=== PATIENT | male | born 2000 | race Caucasian/White ===

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

== ENCOUNTER → 2019-09-30 | Outpatient (CLI) | payer BC ==
[2019-09-30 17:49] LABS: HEMATOCRIT 47.7 % (36.0-47.0); HEMOGLOBIN 16.6 g/dL (12.5-16.1); MEAN PLATELET VOLUME 10.2 fl (7.4-10.4); RED BLOOD COUNT 5.44 M/mm3 (4.20-5.60); RED CELL DISTRIBUTION WIDTH 12.4 % (11.5-14.5); WHITE BLOOD COUNT 7.8 K/mm3 (4.8-10.8)
[2019-09-30 17:58] LABS: PH-URINE 5.5 (5.0 - 8.0); URINE APPEARANCE CLEAR; URINE BILIRUBIN NEGATIVE (NEGATIVE); URINE BLOOD NEGATIVE (NEGATIVE); URINE COLOR YELLOW; URINE GLUCOSE NEGATIVE (NEGATIVE); URINE KETONE NEGATIVE (NEGATIVE); URINE LEUKOCYTE ESTERASE NEGATIVE (NEGATIVE); URINE NITRATE NEGATIVE (NEGATIVE); URINE PROTEIN(semi-quant) TRACE mg/dL (NEGATIVE); URINE UROBILINOGEN NORMAL (NORMAL); URINE WBC 0-1 /hpf (0-3)
[2019-09-30 18:00] LABS: ALBUMIN 4.3 g/dL (3.5-5.0); POTASSIUM 3.8 mmol/L (3.5-5.1)
[2019-09-30 18:01] LABS: CALCIUM 9.3 mg/dL (8.3-10.5)
[2019-09-30 18:04] LABS: TOTAL BILIRUBIN 0.4 mg/dL (0.2-1.2)
== END ==
LOC: AMSURD 17:36
PROVIDERS: Family Medicine
DX: R55 Syncope and collapse (principal)

== ENCOUNTER → 2019-10-07 | Outpatient (CLI) | payer BC ==
[2019-10-07 07:34] LABS: EOS # 0.2 (0.04-0.40); EOS % 2.8 % (0.0-4.0); HEMATOCRIT 48.2 % (36.0-47.0); HEMOGLOBIN 16.9 g/dL (12.5-16.1); LYMPH# 2.8 (1.50-4.00); MEAN CELL VOLUME 88 fl (78-95); MEAN CORPUSCULAR HEMOGLOBIN 31 pg (26-32); MEAN CORPUSCULAR HGB CONC 35 g/dL (33-37); MEAN PLATELET VOLUME 10.5 fl (7.4-10.4); MONO # 0.7 (0.20-0.80); NEU # 3.1 (1.40-6.50); PLATELET COUNT 206 K/mm3 (130-400); RED BLOOD COUNT 5.51 M/mm3 (4.20-5.60); RED CELL DISTRIBUTION WIDTH 12.6 % (11.5-14.5); WHITE BLOOD COUNT 6.8 K/mm3 (4.8-10.8)
[2019-10-07 08:36] LABS: ERYTHROCYTE SEDIMENTATION RATE 0 mm/hr (0-15)
== END ==
LOC: RAD 07:15 → LAB 07:19 → RAD 07:19
PROVIDERS: Family Medicine
DX: L40.0 Psoriasis vulgaris (principal); R10.33 Periumbilical pain; R79.89 Other specified abnormal findings of blood chemistry; R00.0 Tachycardia, unspecified; Z87.898 Personal history of other specified conditions

== ENCOUNTER → 2020-04-12 | Outpatient (CLI) | payer BC ==
[2020-04-12 12:20] LABS: HEMOGLOBIN 17.3 g/dL (13.5-18.0); MEAN PLATELET VOLUME 10.3 fl (7.4-10.4); RED BLOOD COUNT 5.77 M/mm3 (4.20-5.60); RED CELL DISTRIBUTION WIDTH 12.5 % (11.5-14.5); WHITE BLOOD COUNT 7.4 K/mm3 (4.8-10.8)
[2020-04-12 12:31] LABS: ALBUMIN 4.4 g/dL (3.5-5.0)
[2020-04-12 12:36] LABS: TOTAL BILIRUBIN 0.5 mg/dL (0.2-1.2)
[2020-04-12 12:40] LABS: DIRECT BILIRUBIN 0.2 mg/dL (0.0-0.5)
== END ==
LOC: LAB 12:06
PROVIDERS: Family Medicine
DX: E83.119 Hemochromatosis, unspecified (principal)

== ENCOUNTER → 2020-06-01 | Outpatient (CLI) | payer OTHER | LOC: LAB 10:44 | DX: R05 Cough (principal); R09.81 Nasal congestion; R43.0 Anosmia; R50.9 Fever, unspecified; J02.9 Acute pharyngitis, unspecified; Z20.822 Contact with and (suspected) exposure to COVID-19 ==

== ENCOUNTER → 2022-03-25 | Outpatient (CLI) | payer OTHER ==
[2022-03-25 16:39] LABS: BASO # 0.02 K/mm3 (0.02-0.10); EOS # 0.18 K/mm3 (0.04-0.40); EOS % 2.3 % (0.0-4.0); HEMATOCRIT 44.5 % (42.0-52.0); HEMOGLOBIN 15.5 g/dL (13.5-18.0); LYMPH# 2.96 K/mm3 (1.50-4.00); MEAN CELL VOLUME 90 fl (78-100); MEAN CORPUSCULAR HEMOGLOBIN 31 pg (27-31); MEAN CORPUSCULAR HGB CONC 35 g/dL (33-37); MEAN PLATELET VOLUME 10.3 fl (7.4-10.4); MONO # 0.56 K/mm3 (0.20-0.80); NEU # 3.98 K/mm3 (1.40-6.50); PLATELET COUNT 197 K/mm3 (130-400); RED BLOOD COUNT 4.94 M/mm3 (4.20-5.60); WHITE BLOOD COUNT 7.7 K/mm3 (4.8-10.8)
[2022-03-25 16:45] LABS: ALBUMIN 4.3 g/dL (3.5-5.0); POTASSIUM 3.5 mmol/L (3.5-5.1)
[2022-03-25 16:46] LABS: CALCIUM 8.9 mg/dL (8.3-10.5)
[2022-03-25 16:47] LABS: TOTAL PROTEIN 7.2 g/dL (6.4-8.3)
[2022-03-25 16:49] LABS: TOTAL BILIRUBIN 0.6 mg/dL (0.2-1.2)
[2022-03-27 11:23] LABS: HEPATITIS B CORE AB TOTAL Negative (Negative); HEPATITIS B SURFACE ANTIGEN Negative (Negative)
== END ==
LOC: LAB 16:12
PROVIDERS: Physician Assistant
DX: Z79.899 Other long term (current) drug therapy (principal)